=== PATIENT | male | born 1950 | race Caucasian/White ===

== ENCOUNTER 2020-02-23 22:30 | Emergency (ER) | payer OTHER ==
--- NOTE | 2020-02-23 23:05 | RAD ---
Exam: Chest one view HISTORY:Dyspnea. Chest pain. Comparison: None FINDINGS: Cardiac silhouette:Cardiomegaly Aorta: Unremarkable Pulmonary vessels: Normal Costophrenic angles: Clear LUNGS: Scattered reticulonodular opacities. Pneumothorax: None Osseous abnormalities: None IMPRESSION: 1. Cardiomegaly. Scattered reticulonodular opacities. Correlate for edema.
[2020-02-23 23:23] LABS: Hemoglobin 11.4 g/dL (14.0-18.0); Mean Corpuscular HGB CONC 33.9 g/dL (32.0-36.0); Mean Corpuscular Hemoglobin 34.1 pg (27.0-31.0); Mean Platelet Volume 7.3 fL (7.4-10.4); Platelet Count 139 thou/uL (130-400); Red Blood Cell (RBC) Count 3.34 mill/uL (4.70-6.10); White Blood Cell (WBC) Count 21.1 thou/uL (4.8-10.8)
[2020-02-23] MEDS ORDERED: Vancomycin 1 GM/200 ML BAG ONE (23:33)
[2020-02-23] MEDS ORDERED: Cefepime 2 GM VIAL ONE (23:33)
[2020-02-23 23:42] LABS: Band 25 % (5-11); Eosinophils 2 % (0-10); Lymphocytes 1 % (21-51); MDiff Complete? YES; Monocytes 7 % (0-10); Neutrophil 65 % (42-75); Platelet Morphology Comment Appears Adequate
[2020-02-23 23:43] LABS: ALT (SGPT) 24 U/L (8-55); AST (SGOT) 51 U/L (5-34); Albumin 2.5 g/dL (3.4-4.8); Alkaline Phosphatase 82 U/L (40-110); Anion Gap 15 mmol/L (10-20); BUN (Urea Nitrogen) 42 mg/dL (8.4-25.7); Bilirubin, Total 3.1 mg/dL (0.2-1.2); Calc. Creatinine Clearance 0 mL/min (70-130); Calcium 7.5 mg/dL (7.8-10.44); Carbon Dioxide 19 mmol/L (23-31); Chloride 100 mmol/L (98-107); Estimated GFR-MDRD 23; Glucose 103 mg/dL (80-115); Potassium 4.6 mmol/L (3.5-5.1); Protein, Total 6.5 g/dL (5.8-8.1); Sodium 129 mmol/L (136-145)
--- NOTE | 2020-02-24 00:01 | RAD ---
Exam: One view pelvis COMPARISON: 02/23/2020 HISTORY: Trauma. Pain. FINDINGS: Limited evaluation due to body habitus and portable technique Sacral ala are preserved Intact bony pelvis. Intact obturator rings. No evidence of an acute fracture with regards to the left hip. There is evidence of internal fixation hardware without evidence of perihardware lucency. There does appear to be some bony callus formation. No evidence of fracture with regards to the right hip on this single projection IMPRESSION: 1. No definite bony pelvis fracture 2. Internal fixation hardware involving the left hip due to a remote intertrochanteric fracture. No a cute fracture. Additional imaging if clinically warranted.
[2020-02-24 00:07] LABS: Bilirubin Negative (Negative); Blood, Urine 3+ (Negative); Clarity Turbid (Clear); Glucose, Urine (Dipstick) Normal (Negative); Ketone, Urine Negative (Negative); Leukocyte 500 Leu/uL (Negative); Nitrite Negative (Negative); Protein, Urine (Dipstick) 100 mg/dL (Neg-Trace); Specific Gravity, Urine 1.014 (1.002-1.036); Squamous Epithelial 0-3 HPF (0-3); Urobilinogen Normal mg/dL (Less than 2); WBC/HPF Greater than 50 HPF (0-3)
[2020-02-24 00:17] LABS: Bacteria/HPF 3+ HPF (None Seen)
[2020-02-24 00:49] LABS: SARS-CoV-2 NAA Rapid Test Not Detected (NotDetected)
[2020-02-24 02:21] LABS: Lactic Acid 2.4 mmol/L (0.5-2.2)
--- NOTE | 2020-03-05 14:19 | EKG ---
Test Reason : SOB Blood Pressure : / mmHG Vent. Rate : 115 BPM Atrial Rate : 115 BPM P-R Int : 132 ms QRS Dur : 094 ms QT Int : 326 ms P-R-T Axes : 041 -23 044 degrees QTc Int : 450 ms Sinus tachycardia Possible Left atrial enlargement Borderline ECG Confirmed by ZULAY RODRIGUES ([id number]), video tape editor MARCUS JENSEN ([id number]) on 03/05/2020 2:19:42 PM Referred By: Confirmed By:ZULAY RODRIGUES
== END 2020-02-24 09:12 | disposition short-term general hospital (02) ==
LOC: ERS 22:30
DX: A41.9 Sepsis, unspecified organism (principal); R65.20 Severe sepsis without septic shock; N39.0 Urinary tract infection, site not specified; I10 Essential (primary) hypertension; E03.9 Hypothyroidism, unspecified; I25.10 Atherosclerotic heart disease of native coronary artery without angina pectoris; Z86.73 Personal history of transient ischemic attack (TIA), and cerebral infarction without residual deficits; Z20.828 Contact with and (suspected) exposure to other viral communicable diseases
CPT/HCPCS: 36415; 71045; 72170; 80053; 81003; 81015; 83605; 83880; 85025; 87040; 87077; 87086; 87149; 87186; 93005; 94640; 96361; 96365; 96366; 96367; J0692; J3370; J7620; U0002

== ENCOUNTER 2020-05-09 20:01 | Emergency (ER) | payer OTHER ==
[2020-05-09] MEDS ORDERED: Potassium Chloride 20 MEQ TAB ONE (20:34)
[2020-05-09] MEDS ORDERED: Magnesium 2 GM/50 ML BAG (IN WATER) ONE (20:34)
[2020-05-09 21:06] LABS: #Eosinphils 0.1 thou/uL (0.0-0.7); #Lymphocytes 1.5 thou/uL (1.20-3.40); #Monocytes 0.5 thou/uL (0.11-0.59); #Neutrophils 2.2 thou/uL (1.40-6.50); %Basophils 0.8 % (0.0-1.0); %Eosinophils 2.3 % (0.0-10.0); %Lymphocytes 35.3 % (21.0-51.0); %Monocytes 11.2 % (0.0-10.0); %Neutrophils 50.4 % (42.0-75.0); Hemoglobin 11.7 g/dL (14.0-18.0); Mean Corpuscular HGB CONC 34.6 g/dL (32.0-36.0); Mean Corpuscular Hemoglobin 32.6 pg (27.0-31.0); Mean Corpuscular Volume 94.3 fL (78.0-98.0); Mean Platelet Volume 7.7 fL (7.4-10.4); Platelet Count 68 thou/uL (130-400); Platelet Morphology Comment Appears Decreased; RBC Distribution Width 13.8 % (11.5-14.5); Red Blood Cell (RBC) Count 3.59 mill/uL (4.70-6.10); White Blood Cell (WBC) Count 4.3 thou/uL (4.8-10.8)
[2020-05-09 21:12] LABS: AST (SGOT) 39 U/L (5-34); Anion Gap 16 mmol/L (10-20); BUN (Urea Nitrogen) 17 mg/dL (8.4-25.7); Calc. Creatinine Clearance 0 mL/min (70-130); Calcium 8.3 mg/dL (7.8-10.44); Carbon Dioxide 23 mmol/L (23-31); Chloride 104 mmol/L (98-107); Globulin 4.4 g/dL (2.4-3.5); Glucose 116 mg/dL (80-115); Potassium 3.7 mmol/L (3.5-5.1); Protein, Total 7.4 g/dL (5.8-8.1); Sodium 139 mmol/L (136-145)
[2020-05-09 21:14] LABS: Alkaline Phosphatase 72 U/L (40-110)
[2020-05-09 21:17] LABS: ALT (SGPT) 20 U/L (8-55)
== END 2020-05-09 23:21 ==
LOC: ERS 20:01 → EEVIPCON 20:01 → ERS 23:21
DX: E87.6 Hypokalemia (principal); Z79.899 Other long term (current) drug therapy; I10 Essential (primary) hypertension; E03.9 Hypothyroidism, unspecified; I25.10 Atherosclerotic heart disease of native coronary artery without angina pectoris
CPT/HCPCS: 80053; 83735; 85025; 93005; 96365; J3475